=== PATIENT | female | born 1975 | race African-American/Black ===

== ENCOUNTER 2018-07-06 04:58 | Day surgery (SDC) | payer OTHER ==
[2018-07-03 16:20] VITALS: BMI 31.1
[2018-07-06] MEDS ORDERED: MIDAZOLAM HCL 2 MG/2 ML SINGLE DOSE VIAL ONE (07:37)
[2018-07-06] MEDS ORDERED: PROPOFOL 20 ML ONE ×2 (07:37)
[2018-07-06] MEDS ORDERED: SUCCINYLCHOLINE CHLORIDE 200 MG/10 ML VIAL ONE (07:38)
--- NOTE | 2018-07-06 08:37 | HP ---
Past Medical History - Admission History Source: Patient Limitations to Obtaining History: No Limitations - Past Medical History Cardiovascular: Yes: HTN ...: 5 ...Para: 3 Endocrine: Yes: Other (pituitary adenoma) - Past Surgical History Past Surgical History: Yes: (x3) Hx Myomectomy: No Hx Transabdominal Cerclage: No Additional Surgical History: Essure tubal occlusion - Smoking History Smoking history: Never smoked - Alcohol/Substance Use Hx Alcohol Use: Yes (social) History of Substance Use: reports: None - Social History History of Recent Travel: No Home Medications - Allergies Allergies/Adverse Reactions: Allergies Allergy/AdvReac Type Severity Reaction Status Date / Time medroxyprogesterone Allergy Verified 07/06/18 06:56 [From Depo-Provera] - Home Medications Home Medications: Ambulatory Orders NK [No Known Home Medication] 07/03/18 Family Disease History - Family Disease History Family History: Denies Review of Systems - Review of Systems Constitutional: reports: No Symptoms Neck: reports: No Symptoms Cardiovascular: reports: No Symptoms Respiratory: reports: No Symptoms Gastrointestinal: reports: No Symptoms Genitourinary: reports: No Symptoms Musculoskeletal: reports: No Symptoms Integumentary: reports: No Symptoms Endocrine: reports: No Symptoms Physical Exam - Maternity Vital Signs: Vital Signs Temperature 98.4 F 07/06/18 06:53 Pulse Rate 78 07/06/18 06:53 Respiratory Rate 20 07/06/18 06:53 Blood Pressure 140/85 07/06/18 06:53 O2 Sat by Pulse Oximetry (%) 100 07/06/18 06:52 Constitutional: Yes: Well Nourished, No Distress, Calm Neck: Yes: Supple Cardiovascular: Yes: Regular Rate and Rhythm Lungs: Clear to auscultation
[2018-07-06] MEDS ORDERED: oxyCODONE HCL 5 MG TABLET PO PRN ×2 (08:38→09:42)
[2018-07-06] MEDS ORDERED: ACETAMINOPHEN 325 MG TABLET (FP) PO PRN (08:38)
[2018-07-06] MEDS ORDERED: IBUPROFEN 400 MG TABLET (FP) PO PRN (08:38)
[2018-07-06] MEDS ORDERED: ONDANSETRON 4 MG/2 ML VIAL IVPUSH PRN (08:39)
--- NOTE | 2018-07-06 08:48 | HP ---
Admitting History and Physical - Admission History of Present Illness: 42 yo with history of menorrhagia for surgical management. She underwent an endometrial biospy which found a benign endometrial polyp and an ultrasound which revealed multiple fibroids. She reports heavy bleeding started after last delivery; using up to one pad / hr during menses She reports has used lysteda in the past and was inconsistent with use She is currently not on her menses She reports at her last delivery was told she had dense adhesions - Past Medical History Cardiovascular: Yes: HTN ...LMP: 06/25/18 ...: 5 ...Para: 3 Endocrine: Yes: Other (pituitary adenoma) - Past Surgical History Past Surgical History: Yes: (x3) - Smoking History Smoking history: Never smoked - Alcohol/Substance Use Hx Alcohol Use: Yes (social) History of Substance Use: reports: None - Social History History of Recent Travel: No Home Medications - Allergies Allergies/Adverse Reactions: Allergies Allergy/AdvReac Type Severity Reaction Status Date / Time medroxyprogesterone Allergy Verified 07/06/18 06:56 [From Depo-Provera] - Home Medications Home Medications: Ambulatory Orders NK [No Known Home Medication] 07/03/18 Review of Systems - Review of Systems Constitutional: reports: No Symptoms Neck: reports: No Symptoms Cardiovascular: reports: No Symptoms Gastrointestinal: reports: No Symptoms Genitourinary: reports: No Symptoms Breasts: reports: No Symptoms Reported Musculoskeletal: reports: No Symptoms Endocrine: reports: No Symptoms Psychiatric: reports: No Symptoms Physical Examination Vital Signs: Vital Signs Temperature 98.4 F 07/06/18 06:53 Pulse Rate 78 07/06/18 06:53 Respiratory Rate 20 07/06/18 06:53 Blood Pressure 140/85 07/06/18 06:53 O2 Sat by Pulse Oximetry (%) 100 07/06/18 06:52 Constitutional: Yes: Well Nourished, No Distress, Calm Cardiovascular: Yes: Regular Rate and Rhythm Respiratory: Yes: Regular, CTA Bilaterally Gastrointestinal: Yes: Normal Bowel Sounds, Soft Renal/: Yes: Other (deferred to OR) Musculoskeletal: Yes: WNL Edema: No Neurological: Yes: Alert, Oriented Psychiatric: Yes: Alert, Oriented Assessment/Plan 42 yo hx/o menorrhagia, fibroids, biopsy suggestive of endometrial polyp, for hysteroscopy, dilation and curettage, polypectomy, hydrotherm ablation 1. Consetns reviewed and signed 2. preop labs reviewed 3. SCDs for DVT Prophylaxis 4. Will proceed to OR
[2018-07-06] MEDS ORDERED: KETOROLAC TROMETHAMINE 30 MG/1 ML VIAL ONE (09:06)
[2018-07-06] MEDS ORDERED: DEXAMETHASONE SOD PHOSPHATE 4 MG/1 ML VIAL ONE (09:06)
[2018-07-06] MEDS ORDERED: LIDOCAINE HCL/PF 2% SDV 5ML VIAL ONE (09:06)
[2018-07-06] MEDS ORDERED: LACTATED RINGERS SOLUTION 1,000 ML IV SCH (09:45)
--- NOTE | 2018-07-06 10:29 | OP ---
Operative Note - Note: Operative Date: 07/06/18 Pre-Operative Diagnosis: menorrhagia, endometrial polyp Operation: hysteroscopic myomectomy, hysteroscopic polypectomy, endometrial ablation Findings: endometrial polyp and submucosal myoma; bilateral ostia visualized Post-Operative Diagnosis: Other (menorrhgia, enodmetrial polyp, submucosal myoma ) Surgeon: Becki Wynne Anesthesiologist/HULL DRAFTER: Toño Marquis Anesthesia: General Fluid Volume Replaced (mls): 900 Operative Report Dictated: Yes
[2018-07-06] MEDS ORDERED: ACETAMINOPHEN 325 MG TABLET (FP) ONE (11:05)
[2018-07-06 11:29] VITALS: TEMP 98.1
[2018-07-06] MEDS ORDERED: oxyCODONE HCL 5 MG TABLET ONE ×2 (11:33→12:06)
[2018-07-06 11:41] VITALS: PULSE 65
[2018-07-06 12:48] VITALS: BP 129/83
--- NOTE | 2018-07-06 19:34 | OP ---
DATE OF OPERATION: 07/06/2018 ATTENDING PHYSICIAN RESPONSIBLE FOR SIGNING REPORT: Андрей Wynne MD PREOPERATIVE DIAGNOSES: Menorrhagia, endometrial polyp. POSTOPERATIVE DIAGNOSES: Endometrial polyp, submucosal myoma, and menorrhagia. FINDINGS: Endometrial polyp and submucosal myoma. Bilateral ostia visualized. Large fibroid uterus. SURGEON: Андрей Wynne MD ANESTHESIOLOGIST: Toño Marquis, REF-CRN ANESTHESIA: General. ESTIMATED BLOOD LOSS: 5 mL FLUIDS GIVEN: 900. INDICATION: Patient is a 42-year-old 5, para 3 with history of menorrhagia not controlled by oral medications, desiring surgical intervention. She was counseled regarding surgical procedure. Risks, benefits, alternatives, and complications of procedure were discussed including infection, bleeding, damage to surrounding organs such as the bowel, bladder, uterine perforation, failure of procedure. She expressed understanding, was brought to the operating room. When anesthesia was found to be adequate, patient was prepped and draped in normal sterile fashion, placed in dorsal lithotomy position using Rigoberto stirrups. A weighted speculum was placed in the posterior vagina, and anterior vagina was retracted using a Alvarado retractor. Anterior lip of the cervix was grasped using a single-tooth tenaculum. The cervix was gently dilated to accommodate a size 6.5-mm hysteroscope. The scope was placed under direct visualization. An endometrial polyp and a subcutaneous myoma were identified. Symphion resectoscope was used to resect the endometrial polyp under direct visualization and the myoma under direct visualization. The bed was cauterized using electrocautery. At this point in time, the Symphion was removed. Fluid deficit was noted to be 0. The HT hydrothermal ablation was inserted, and after security checks, the ablation was performed. Visualization of the cavity noted changes in the endometrium. No fluid leaks were noted. The fluid was heated to approximately 80 degrees Celsius, and an ablation time of 10 minutes was performed. After cooling-down procedure, examination of the cavity revealed good charring of the endometrium. All instruments were removed from the vagina. Bleeding was noted from the anterior cervix which was stitched using a 0 Vicryl in interrupted fashion. The patient tolerated the procedure well. Estimated blood loss was less than 5 mL. Patient was awoken from anesthesia and brought to recovery room in stable condition. АНДРЕЙ WYNNE M.D. /[id number]
--- NOTE | 2018-07-07 18:29 | PATH ---
Surgical Pathology Report Patient Name: [facility] DRA[facility]. Rec. #: [id number] /Age/Gender: 1975 (Age: 42) / F Account: [id number] Location: [facility] SURGICAL Taken: 07/06/2018 Received: 07/06/2018 Reported: 07/07/2018 Physicians: Becki Wynne Specimen(s) Received ENDOMETRIAL POLYP AND FIBROID Clinical History Endometrial polyp, menorrhagia Final Diagnosis ENDOMETRIAL POLYP AND FIBROID, ABLATION: FRAGMENTS OF SMOOTH MUSCLE BUNDLES, CONSISTENT WITH LEIOMYOMA. SEPARATE FRAGMENTS OF ENDOMETRIAL POLYP. Electronically Signed Alisa Bustamante M.D. Gross Description Received in formalin labeled "endometrial polyp and fibroid," is a 3.7 x 3.5 x 0.3 cm aggregate of pope soft tissue fragments. The formalin is filtered and the specimen is entirely submitted in 2 cassettes. DL/07/06/2018 saudi/07/06/2018
== END 2018-07-06 12:35 | disposition home or self-care (01) ==
LOC: JASU-SURG 04:58
PROVIDERS: ATTEND Obstetrics & Gynecology
PROC: 0UB98ZZ Excision of Uterus, Via Natural or Artificial Opening Endoscopic (ICD-10-PCS; 2018-07-06)
PROC: 0U5B8ZZ Destruction of Endometrium, Via Natural or Artificial Opening Endoscopic (ICD-10-PCS; principal; 2018-07-06 08:00)
PROC: 0UB98ZX Excision of Uterus, Via Natural or Artificial Opening Endoscopic, Diagnostic (ICD-10-PCS; 2018-07-06 08:00)
DX: N84.0 Polyp of corpus uteri (principal); D25.0 Submucous leiomyoma of uterus; N92.0 Excessive and frequent menstruation with regular cycle
CPT/HCPCS: 36415; 84703; 86850; 86900; 86901; 88305-TC; 94760

== ENCOUNTER 2023-12-06 10:20 | Emergency (ER) | payer OTHER ==
[2023-12-06 10:28] VITALS: BP 138/78; PULSE 90; RESP 18; TEMP 98; BMI 30.1
== END 2023-12-06 12:37 | disposition home or self-care (01) ==
LOC: JER 10:20
DX: S70.11XA Contusion of right thigh, initial encounter (principal); X58.XXXA Exposure to other specified factors, initial encounter
CPT/HCPCS: 99283-25